=== PATIENT | male | born 1995 | race Caucasian/White ===

== ENCOUNTER 2017-01-16 15:14 | Emergency (ER) | payer BC ==
--- NOTE | 2017-01-16 16:45 | EDM.PDOC ---
ED HISTORY OF PRESENT ILLNESS - General Chief Complaint: Respiratory Problem Stated Complaint: PT IS IN PAINS Time Seen by Provider: 01/16/17 15:53 Source of Information: Reports: Patient History Limitations: Reports: No limitations - History of Present Illness INITIAL COMMENTS - FREE TEXT/NARRATIVE: Presents reporting epigastric pain. The patient states about 3 weeks ago he noticed some palpitations, hot flashes chest pain and shortness of breath. He also reports that he had some heaves and pulling and pain in the epigastric area. He went to a chiropractor for an adjustment. He states that whenever he gets these pulling feelings and the heaves and that area he was goes to the chiropractor as he had pleurisy as a teenager. 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 His mother was recently diagnosed with aortic dilatation do to hypertension. He thinks this might be hereditary and is worried about his heart. When asked why he came in today, the patient states that he has been noticing an increased frequency in his palpitations, epigastric heaves about 3- 4 a day. - Related Data Allergies/ADRs: Allergies Allergy/AdvReac Type Severity Reaction Status Date / Time No Known Allergies Allergy Verified 01/16/17 15:31 Home Meds: Home Meds . [No Known Home Meds] 01/16/17 [History] Past Medical History HEENT History: Reports: None Cardiovascular History: Reports: None Respiratory History: Reports: None Gastrointestinal History: Reports: None Genitourinary History: Reports: None Musculoskeletal History: Reports: None Neurological History: Reports: None Psychiatric History: Reports: None Endocrine/Metabolic History: Reports: None Hematologic History: Reports: None Immunologic History: Reports: None Oncologic (Cancer) History: Reports: None Dermatologic History: Reports: None - Infectious Disease History Infectious Disease History: Reports: None Social & Family History - Family History Family Medical History: Noncontributory - Tobacco Use Smoking Status *Q: Current Every Day Smoker Years of Tobacco use: 3 Packs/Tins Daily: 0.5 - Caffeine Use Caffeine Use: Reports: None - Recreational Drug Use Recreational Drug Use: No ED ROS GENERAL - Review of Systems Review Of Systems: ROS reveals no pertinent complaints other than HPI. ED EXAM, GENERAL - Physical Exam Exam: See Below Exam Limited By: No limitations General Appearance: alert, no apparent distress Ears: normal external exam Nose: normal inspection Throat/Mouth: Normal inspection Head: atraumatic Neck: normal inspection Respiratory/Chest: no respiratory distress, lungs clear, normal breath sounds, chest non-tender Cardiovascular: normal peripheral pulses, regular rate, rhythm, no murmur GI/Abdominal: soft Extremities: normal inspection Neurological: alert, oriented, no motor/sensory deficits Psychiatric: anxious Skin Exam: Warm, Dry, Intact, Normal color, No rash Lymphatic: no adenopathy Course - Vital Signs Last Recorded V/S: Last Vital Signs Temp 37.5 C 01/16/17 15:31 Pulse 73 01/16/17 15:31 Resp 18 01/16/17 15:31 BP 139/91 H 01/16/17 15:31 Pulse Ox 97 01/16/17 15:31 - Orders/Labs/Meds Orders: Active Orders 24 hr Category Date Time Status EKG 12 Lead [EKG Documentation Completion] [RC] STAT Care 01/16/17 15:27 Active CMP [COMPREHENSIVE METABOLIC PN,CMP] [CHEM] Stat Lab 01/16/17 16:17 Ordered TROPONIN I [CHEM] Stat Lab 01/16/17 16:17 Ordered Departure - Departure Time of Disposition: 19:23 Disposition: Home, Self-Care 01 Condition: good Clinical Impression: Panic anxiety syndrome Referrals: PCP,None [Primary Care Provider] - [facility] [Outside] [facility] [Outside] Forms: ED Department Discharge Additional Instructions: 1. Please make an appointment in primary care as soon as possible to evaluate your symptoms. 2. Ativan: Please take one tab at the initial onset of anxiety, up to twice daily, no driving or operating machinery - My Orders Last 24 Hours: My Active Orders 01/16/17 16:17 CMP [COMPREHENSIVE METABOLIC PN,CMP] [CHEM] Stat TROPONIN I [CHEM] Stat - Assessment/Plan Last 24 Hours: My Active Orders 01/16/17 16:17 CMP [COMPREHENSIVE METABOLIC PN,CMP] [CHEM] Stat TROPONIN I [CHEM] Stat
[2017-01-16 17:07] LABS: CHLORIDE,CL 108 mmol/L (98-110); SODIUM,NA 141 mmol/L (136-146)
[2017-01-16] MEDS ORDERED: Alum Hydrox/Mag Hydrox/Simeth 15 ML, Lidocaine 2% 5 ML PO ONE ×2 (18:11)
[2017-01-16] MEDS ORDERED: LORazepam 1 MG Tab PO ONE (18:39)
[2017-01-16 19:39] VITALS: BP 110/81
== END 2017-01-16 19:37 | disposition home or self-care (01) ==
LOC: MW.ED 15:14
DX: F41.0 Panic disorder [episodic paroxysmal anxiety] (principal); F17.210 Nicotine dependence, cigarettes, uncomplicated
CPT/HCPCS: 36415; 80053; 84484; 93005; 99284; A9270; 99283